=== PATIENT | male | born 1985 | race Caucasian/White ===

== ENCOUNTER 2023-04-03 13:08 | Emergency (ER) | payer BC ==
[~2023-04-03] VITALS: Ht 175.3 cm; Wt 70.5 kg
[2023-04-03 13:09] VITALS: TEMP 98.6
[2023-04-03 13:51] LABS: BASOPHILS # (AUTO) 0.1 X10'3 (0-0.2); BASOPHILS % (AUTO) 0.7 % (0-1); EOSINOPHILS # (AUTO) 0.4 X10'3 (0-0.9); EOSINOPHILS % (AUTO) 3.3 % (0-6); HEMATOCRIT 40.8 % (42.0-52.0); HEMOGLOBIN 13.3 g/dl (14.0-17.9); LYMPHOCYTES # (AUTO) 4.7 X10'3 (1.1-4.8); LYMPHOCYTES % (AUTO) 38.8 % (21-51); MEAN CORPUSCULAR HEMOGLOBIN 26.4 PG (27.0-31.0); MEAN CORPUSCULAR HGB CONC 32.5 g/dL (33.0-36.5); MEAN CORPUSCULAR VOLUME 81.4 FL (78-98); MEAN PLATELET VOLUME 7.5 FL (7.4-10.4); MONOCYTES # (AUTO) 1.1 X10'3 (0-0.9); NEUTROPHILS # (AUTO) 5.8 X10'3 (1.8-7.7); NEUTROPHILS % (AUTO) 48.2 % (42-75); PLATELET COUNT 399 X10'3 (140-440); RED BLOOD COUNT 5.02 X10'6 (4.70-6.10); RED CELL DISTRIBUTION WIDTH 16.8 % (11.5-14.5)
[2023-04-03 14:09] LABS: ALBUMIN 3.7 G/DL (3.4-5.0); ANION GAP 12 (8-16); BLOOD UREA NITROGEN 12 MG/DL (7-18); CALCIUM 8.3 MG/DL (8.5-10.1); CHLORIDE 105 MMOL/L (99-107); GLUCOSE 133 MG/DL (70-104); POTASSIUM 3.2 MMOL/L (3.5-5.1); PRO BRAIN NATRIURETIC PEPTIDE 38 PG/ML (0-125); SODIUM 141 MMOL/L (135-145); TOTAL CARBON DIOXIDE 24.2 MMOL/L (24-32); eCRCL 101 ML/MIN; eGFR 84 ML/MIN
[2023-04-03] MEDS: POTASSIUM BICARB 20meq eff tab 20 MEQ TABLET.EFF PO ONE (14:47)
[2023-04-03] MEDS ORDERED: LORazepam 2 mg/ml vial IV ONE (16:10)
[2023-04-03] MEDS: LORazepam 1 MG tablet PO ONE (17:34)
[2023-04-03 17:36] VITALS: PULSE 85
[2023-04-03 17:43] VITALS: BP 160/105; RESP 20; O2SAT 99
== END 2023-04-03 17:45 | disposition home or self-care (01) ==
LOC: ER 13:09
DX: I10 Essential (primary) hypertension (principal); F10.239 Alcohol dependence with withdrawal, unspecified; K21.9 Gastro-esophageal reflux disease without esophagitis; F17.210 Nicotine dependence, cigarettes, uncomplicated; F12.90 Cannabis use, unspecified, uncomplicated; Y90.9 Presence of alcohol in blood, level not specified
CPT/HCPCS: 36415; 71045; 80048; 80346; 83880; 84484; 85025; 93005; 99285